=== PATIENT | male | born 1975 | race Caucasian/White ===

== ENCOUNTER 2021-02-07 15:43 | Emergency (ER) | payer OTHER, SELFPAY ==
--- NOTE | 2021-02-07 15:45 | DI.RAD_ITS ---
Exam(s) XR SHOULDER LT COMPLETE 2+V EXAM: XR SHOULDER LT COMPLETE 2+V CLINICAL HISTORY: pain, fall while skiing TECHNIQUE: COMPARISON: CR,XR XR SHOULDER LT COMPLETE 2+V from 02/07/2021 FINDINGS: Two views were obtainedInitially and show an anterior glenohumeral dislocation with a question of def ormity of the superior glenoid. Follow-up films show reduction of the dislocation and do not confirm a glenoid fracture. Occult fracture is not excluded, follow-up radiographs or CT recommended for fur ther evaluation. IMPRESSION: RADIATION DOSE DELIVERED: Total DLP
[2021-02-07 15:54] VITALS: BP 131/97; PULSE 81; RESP 14; TEMP 36.6; O2SAT 98
--- NOTE | 2021-02-07 16:02 | W.ED.GENAD ---
Discharge Plan Disposition Patient Disposition: HOME Condition: Improving Discharge Details Clinical Impression: Anterior dislocation of left shoulder Primary Care Provider: None,None ED Provider: Riky Patricio Home Meds and New Rx's Prescriptions: No Action No Known Home Meds RF: 0 Discharge Instructions Instructions: Shoulder Dislocation Exercises (GEN), Shoulder Dislocation (ED) Additional Instructions: Continue to apply ice 20 minutes at a time for comfort. You'll have increased soreness and stiffness of the left shoulder joint over the next 24 hours time. Please wear sling for 7 to 10 days time to allow the shoulder capsule to heal. May remove for bathing. In our local health system, we would refer you to the orthopedic office for follow-up. Please call your regular doctor upon your return home for follow-up with your local orthopedist. Would recommend repeat x-ray in 7 to 10 days time. Tylenol and ibuprofen as needed for pain. Return to the ER for any acute concerns. 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 Pain and unable to move since that time. Presents with probable left anterior glenohumeral dislocation. After gentle attempt at manipulation the patient was referred for x-ray which confirms anterior glenohumeral dislocation. Initial images show question of osseous defect of the superior glenoid on the Grashey view. Subsequently, traction and external rotation was applied with the patient's consent and use of breathing techniques, a palpable clunk was felt the patient had return of fullness of the humeral head. Postreduction motor, sensory, radial pulse normal. Repeat x-ray with successful reduction of glenohumeral dislocation. No fracture seen in glenoid appears intact. Patient placed in sling. He lives in the [facility] and will follow up with primary care/orthopedics there. Recommended to him that he have repeat x-ray in 7 to 10 days time. HPI General Mode of arrival: ambulatory. Date/Time Provider Initiated Documentation: 02/07/21 15:45. Limitations to Documentation: no limitations. Information obtained by: patient. History of Present Illness 45 year old M presents to the emergency department with the chief complaint of L shoulder pain after fall, described as moderate, Quality is described as dull and constant, and is localized to the left and upper extremity. Patient reports no radiation. Patient started experiencing this minute(s) and it has been constant. Rest improves symptom(s), Movement worsens symptoms . Patient notes denies chest pain, shortness of breath and weakness. Patient did receive the following treatments prior to arrival, none Related Data Home Medications Medication Instructions Recorded Confirmed Unknown [No Known Home Meds] 02/07/21 02/07/21 Allergies Allergy/AdvReac Type Severity Reaction Status Date / Time No Known Allergies Allergy Unverified 02/07/21 15:56 General Stated Complaint: Orthopedic ARJUN: 3 Review of Systems Narrative: No other injuries. Was complex. 6 is reviewed and otherwise negative. No motor weakness or numbness. PFSH All Active Problems (Updated 02/07/21 @ 16:31 by Riky Patricio MD) Anterior dislocation of left shoulder (Acute) Social History Smoking/Tobacco Use Status: Never Smoking risk assessment performed?: Yes Alcohol Intake: current Alcohol Intake frequency: a few times a month Drug use: Never Substance use type: does not use Do you feel safe at home: Yes Exam Narrative Exam Narrative: GEN: awake, alert, oriented 3. Pleasant, well groomed, interactive. HEAD: Normocephalic, atraumatic ENT: Mucous membranes moist, oropharynx unremarkable, External ear exam unremarkable EYES: PERRL, EOMI NECK: Full ROM, no IRAM, no menigismus CHEST/RESP: Nontender, clear to auscultation bilateral, no wheeze/rhonchi/rales CARDIOVASCULAR: RRR, no murmur, rub ronni. 2+ Rad pulse bilateral ABDOMEN: Soft, nontender, no mass. +Bowel sounds EXT: Prior left upper extremity with loss of humeral head fullness. Lateral deltoid sensation intact. Left arm held in slight abduction and internal rotation. Neuro: Grossly normal neurologic exam, conversant, interactive. Psych: Speech fluent, thoughts congruent, affect normal Course Vital Signs Vital signs: Vital Signs Temperature 36.6 C 02/07/21 15:54 Pulse 81 02/07/21 15:54 Respiratory Rate 14 02/07/21 15:54 Blood Pressure 131/97 H 02/07/21 15:54 Pulse Oximetry 98 02/07/21 15:54 Temperature 36.6 C 02/07/21 15:54 Temperature Source Temporal Artery Scan 02/07/21 15:54 Pulse 81 02/07/21 15:54 Respiratory Rate 14 02/07/21 15:54 Respiratory Effort Non-Labored 02/07/21 15:58 Blood Pressure 131/97 H 02/07/21 15:54 Blood Pressure Position Sitting 02/07/21 15:54 Pulse Oximetry 98 02/07/21 15:54 Pain Level 10 02/07/21 15:54 Procedures Orthopedic Joint Reduction Joint #1: Side: left Shoulder Technique Used (if applicable): external rotation Post-reduction neuro exam: intact Post-reduction vascular: intact Post Reduction X-Ray Obtained: Yes PAWSS Have you Been Recently Intoxicated or Drunk Within the Last 30 days?: No Have you Ever Experienced Previous Episodes of Alcohol Withdrawal?: No Have you ever Experienced Withdrawal Seizures?: No Have you ever Experienced Delirium Tremens(DT)s?: No Have you ever undergone Alcohol Rehabilitation Treatment (i.e, inpt ot outpatient treatment programs)?: No Have you ever Experienced Blackouts?: No Have you ever Combined Alcohol with other Downers within the last 90 days?: No Have you ever Combined Alcohol with any other Substance of Abuse during the last 90 days?: No Positive Blood Alcohol level on Presentation? [PCS.BAL]: No Evidence of Increased Autonomic Activity (i.e. HR>120, tremor, sweating, agitation, nausea)?: No Result: 0
--- NOTE | 2021-02-07 16:33 | DI.VRAD_ITS ---
PROCEDURE INFORMATION: Exam: XR Left Shoulder Exam date and time: 02/07/2021 3:53 PM Age: 45 years old Clinical indication: Other: Left shoulder pain, fall while skiing TECHNIQUE: Imaging protocol: XR Left shoulder. Views: 2 or more views. COMPARISON: No relevant prior studies available. FINDINGS: Bones/joints: There is anterior dislocation of the glenohumeral joint. On Grashey view, there is apparent osseous defect along the superior glenoid which is not definitely seen on scapular Y-view. Soft tissues: Soft tissue edema apparent. IMPRESSION: 1. Anterior dislocation of the glenohumeral joint. 2. Apparent osseous defect along the superior glenoid as seen on Grashey view. Recommend reduction views to further evaluate. Dictated and Authenticated by: John Vieira MD. Ordering:MARY Lan MD
[2021-02-07] MEDS: Ibuprofen 800 MG TAB PO (16:41)
--- NOTE | 2021-02-07 16:47 | DI.VRAD_ITS ---
PROCEDURE INFORMATION: Exam: XR Left Shoulder Exam date and time: 02/07/2021 4:17 PM Age: 45 years old Clinical indication: Injury or trauma; Fall; Dislocation; Severity not specified; Injury date: 02/07/21; Injury details: S/P relocation of left shoulder TECHNIQUE: Imaging protocol: XR Left shoulder. Views: 2 or more views. COMPARISON: CR XR SHOULDER LT COMPLETE 2+V 02/07/2021 4:10 PM FINDINGS: Bones/joints: There is a successful reduction of anterior glenohumeral dislocation with left humeral head in normal anatomic. Glenoid appears intact. No acute osseous injury seen. Incidental note is made of an os acromiale. Soft tissues: Soft tissue edema. IMPRESSION: 1. Successful reduction of anterior left glenohumeral dislocation. 2. No acute fracture. However, should patient's pain persist, recommend follow-up imaging in 7-10 days to evaluate for possible occult fracture. Dictated and Authenticated by: John Vieira MD. Ordering:MARY Lan MD
[2021-02-07] MEDS: diazePAM 2 MG TAB PO ×3 (16:56→17:13)
[2021-02-07 17:22] VITALS: BP 131/97; PULSE 81; RESP 14; TEMP 36.6; O2SAT 98
== END 2021-02-07 17:24 | disposition home or self-care (01) ==
PROVIDERS: Emergency Provider Emergency Medicine
DX: S43.085A Other dislocation of left shoulder joint, initial encounter (principal); V00.311A Fall from snowboard, initial encounter
CPT/HCPCS: 23650; 73030